=== PATIENT | female | born 1965 | race Asian ===

== ENCOUNTER 2017-01-13 12:00 | Emergency (ER) | payer OTHER ==
--- NOTE | 2017-01-13 12:03 | PDOC ---
Attending Attestation - Resident Resident Name: Mack Luong - ED Attending Attestation I have performed the following: I have examined & evaluated the patient, The case was reviewed & discussed with the resident, I agree w/resident's findings & plan, Exceptions are as noted - HPI HPI: 01/13/17 12:03 The patient is a 51 year old female with no significant past medical history who presents with left upper extremity burning / tingling. She denies upper extremity weakness. She denies lower extremity or facial paresthesias or weakness. She denies visual changes, speech changes, difficulty speaking, difficulty swallowing, difficulty ambulating. She denies trauma. She denies fever, rash, tick exposure. 01/13/17 12:12 - Physicial Exam PE: 01/13/17 12:10 GENERAL: Well developed, well nourished. Awake and alert. No acute distress. HEENT: Normocephalic, atraumatic. PERRLA, EOMI. No conjunctival pallor. Sclera are non- icteric. Moist mucous membranes. Oropharynx is clear. NECK: Supple. Full ROM. No JVD. Carotid pulses 2+ and symmetric, without bruits. No thyromegaly. No lymphadenopathy. CARDIOVASCULAR: Regular rate and rhythm. No murmurs, rubs, or gallops. Distal pulses are 2+ and symmetric. PULMONARY: No evidence of respiratory distress. Lungs clear to auscultation bilaterally. No wheezing, rales or rhonchi. ABDOMINAL: Soft. Non-tender. Non-distended. No rebound or guarding. No organomegaly. Normoactive bowel sounds. MUSCULOSKELETAL Normal range of motion at all joints. No bony deformities or tenderness. No CVA tenderness. EXTREMITIES: No cyanosis. No clubbing. No edema. No calf tenderness. SKIN: Warm and dry. Normal capillary refill. No rashes. No jaundice. NEUROLOGICAL: Alert, awake, appropriate. Cranial nerves 2-12 intact. No deficits to light touch and temperature in face, upper extremities and lower extremities. No motor deficits in the in face, upper extremities and lower extremities. Normoreflexic in the upper and lower extremities. Normal speech. Toes are down- going bilaterally. Gait is normal without ataxia. PSYCHIATRIC: Cooperative. Good eye contact. Appropriate mood and affect. - Medical Decision Making 01/13/17 12:13 The patient is well appearing and in no acute distress
[2017-01-13 12:08] VITALS: BP 130/79; PULSE 78; TEMP 98.1; BMI 27.4
--- NOTE | 2017-01-13 12:39 | PDOC ---
History of Present Illness - General Chief Complaint: Pain Stated Complaint: LEFT HAND, LEFT WRIST "BURNING PAIN", "NUMBNESS" Time Seen by Provider: 01/13/17 12:02 History Source: Patient Exam Limitations: No Limitations - History of Present Illness Initial Comments: 51 y/o F w/PMH of hypothyroidism presents to [facility] ER w/ c/o numbness and pain in both hands last night. Pt normally gets numbness and tingling in both hands for the last year and last night she had burning pain that was 10/10 in L hand decided to come to ER today. She still has some residual numbness at finger tips. She rubbed coconut oil which she usually does when she gets the numbness and felt relief after 20 min. She denies speech difficulty, arm weakness, facial droop, confusion, light-headedness, dizziness, numbness or tingling elsewhere, chest pain, sob, abd pain, diarrhea, constipation, blood in stool, dysuria, blood in urine, or swelling in extremities. Past History - Past Medical History Allergies/Adverse Reactions: Allergies Allergy/AdvReac Type Severity Reaction Status Date / Time No Known Allergies Allergy Verified 01/13/17 12:02 Home Medications: Ambulatory Orders Levothyroxine [Synthroid -] 110 mcg PO DAILY 12/18/14 Naproxen [Naprosyn -] 500 mg PO BID #14 tablet 01/13/17 Thyroid Disease: Yes (HYPO) Other medical history: was told she has carpal tunnel syndrome - Psycho/Social/Smoking Cessation Hx Anxiety: No Suicidal Ideation: No Smoking History: Never smoked Hx Alcohol Use: (occasional) Drug/Substance Use Hx: No *Physical Exam - Vital Signs Last Vital Signs Temp Pulse Resp BP Pulse Ox 98.1 F 78 18 130/79 97 01/13/17 12:00 01/13/17 12:00 01/13/17 12:00 01/13/17 12:00 01/13/17 12:00 *DC/Admit/Observation/Transfer Diagnosis at time of Disposition: Carpal tunnel syndrome - Discharge Dispostion Disposition: HOME Condition at time of disposition: Stable - Prescriptions Prescriptions: Naproxen [Naprosyn -] 500 mg PO BID #14 tablet - Referrals Referrals: Marsha Barrett MD [Primary Care Provider] - Marshall Yadav MD [Staff Physician] - Tripp Wilson MD [Staff Physician] - - Patient Instructions Printed Discharge Instructions: DI for Carpal Tunnel Syndrome Additional Instructions: Follow up with your primary care doctor, Dr. Barrett. You will also need to have your thyroid checked with bloodwork. You will also need to follow up with a hand specialist for carpal tunnel work up. You can see Dr. Yadav for this. You will also need to follow up with a neurologist for carpal tunnel work up. You can see Dr. Wilson for this. You have also been prescribed naproxen to take twice a day with food for 7 days. Use the brace given to you in the ER at night. If your symptoms worsen please come back to the ER.
== END 2017-01-13 12:50 | disposition home or self-care (01) ==
LOC: FER 12:00
DX: G56.03 Carpal tunnel syndrome, bilateral upper limbs (principal); E03.9 Hypothyroidism, unspecified
CPT/HCPCS: 99284-25

== ENCOUNTER 2017-09-27 13:20 | Emergency (ER) | payer OTHER ==
[2017-09-27] MEDS ORDERED: ACETAMINOPHEN 500 MG TABLET (FP) PO ONE (13:35)
[2017-09-27 13:36] VITALS: BP 140/90; PULSE 112; TEMP 102.7; BMI 27.4
--- NOTE | 2017-09-27 13:39 | PDOC ---
History of Present Illness - General Chief Complaint: Cold Symptoms Stated Complaint: SORE THROAT, NASAL CONGESTION, BODY ACHES Time Seen by Provider: 09/27/17 13:29 History Source: Patient Exam Limitations: No Limitations - History of Present Illness Initial Comments: 09/27/17 13:35 52 y/o female with 2 day hx of flu like symptoms. Body aches, chills, sore throat, headache and chills. Mild cough, non productive. Denies traveling or sick contacts. No N/V/d/C. Took something earlier today for fever. Associated Symptoms: reports: cough, fever/chills. denies: chest pain, nausea/ vomiting, shortness of breath Past History - Past Medical History Allergies/Adverse Reactions: Allergies Allergy/AdvReac Type Severity Reaction Status Date / Time No Known Allergies Allergy Verified 09/27/17 13:32 Home Medications: Ambulatory Orders Levothyroxine [Synthroid -] 110 mcg PO DAILY 12/18/14 Azithromycin [Zithromax -] 250 mg PO UTDICT #6 tab 09/27/17 Oseltamivir Phosphate [Tamiflu] 75 mg PO BID #10 capsule 09/27/17 COPD: No Thyroid Disease: Yes (HYPO) - Suicide/Smoking/Psychosocial Hx Smoking History: Never smoked Hx Alcohol Use: No Drug/Substance Use Hx: No Substance Use Type: Alcohol Review of Systems - Review of Systems Able to Perform ROS?: Yes Is the patient limited [place]alan proficient: No Constitutional: Yes: Chills, Fever HEENTM: Yes: Throat Pain Respiratory: Yes: Cough. No: Shortness of Breath Cardiac (ROS): No: Chest Pain ABD/GI: No: Diarrhea, Nausea, Vomiting Neurological: Yes: Headache. No: Numbness All Other Systems: Reviewed and Negative *Physical Exam - Physical Exam General Appearance: Yes: Nourished, Appropriately Dressed. No: Apparent Distress HEENT: positive: EOMI, GEOVANI, Normal ENT Inspection, Normal Voice Neck: positive: Trachea midline, Normal Thyroid, Supple. negative: Tender, Rigid Respiratory/Chest: positive: Lungs Clear, Normal Breath Sounds. negative: Chest Tender, Respiratory Distress Cardiovascular: positive: Regular Rate, S1, S2, Tachycardia. negative: Edema, JVD, Murmur Vascular Pulses: Femoral (R): 4+, Femoral (L): 4+, Carotid (R): 4+, Carotid (L) : 4+, Dorsalis-Pedis (R): 4+, Doralis-Pedis (L): 4+ Gastrointestinal/Abdominal: positive: Normal Bowel Sounds, Flat, Soft. negative : Tender, Organomegaly, Pulsatile Mass Musculoskeletal: positive: Normal Inspection. negative: CVA Tenderness Extremity: positive: Normal Capillary Refill Integumentary: positive: Normal Color, Dry, Warm Neurologic: positive: avionics system engineer II-XII NML intact, Fully Oriented, Alert, Normal Mood/ Affect, Normal Response, Motor Strength 01/05 ED Treatment Course - ADDITIONAL ORDERS Additional order review: 09/27/17 13:38 Pt appears to have the flu, will treat with Tamiflu and Z-pack for underlying URI. Pt is in agreement with plan. *DC/Admit/Observation/Transfer Diagnosis at time of Disposition: Influenza, Upper respiratory disease - Discharge Dispostion Disposition: HOME Condition at time of disposition: Good Admit: No - Referrals Referrals: Marsha Barrett MD [Primary Care Provider] - - Patient Instructions Printed Discharge Instructions: DI for Influenza -- Adult Additional Instructions: Fluids, rest, Motrin Z-pack as directed Tamiflu 75 mg 2x/day for 5 days If worsen return to ER - Post Discharge Activity Forms/Work/School Notes: Back to Work
== END 2017-09-27 14:12 | disposition home or self-care (01) ==
LOC: FER 13:20
DX: J11.1 Influenza due to unidentified influenza virus with other respiratory manifestations (principal); J06.9 Acute upper respiratory infection, unspecified; E07.9 Disorder of thyroid, unspecified
CPT/HCPCS: 99282-25

== ENCOUNTER 2021-10-04 04:35 | Day surgery (SDC) | payer OTHER ==
[2021-09-28 11:21] VITALS: BMI 31.9
[2021-10-04] MEDS ORDERED: KETAMINE HCL 200 MG/20 ML VIAL ONE (07:15)
[2021-10-04 08:39] VITALS: TEMP 98
[2021-10-04 09:04] VITALS: BP 131/69; PULSE 63
== END 2021-10-04 09:30 | disposition home or self-care (01) ==
LOC: JASU-ENDO 04:35
PROVIDERS: ATTEND Internal Medicine Gastroenterology
PROC: 0DBN8ZX Excision of Sigmoid Colon, Via Natural or Artificial Opening Endoscopic, Diagnostic (ICD-10-PCS; principal; 2021-10-04 08:00)
DX: Z12.11 Encounter for screening for malignant neoplasm of colon (principal); Z86.010 Personal history of colon polyps; D12.5 Benign neoplasm of sigmoid colon; K64.8 Other hemorrhoids
CPT/HCPCS: 88305-TC